=== PATIENT | male | born 2000 | race Caucasian/White ===

== ENCOUNTER 2020-01-14 16:57 | Emergency (ER) | payer BC, OTHER ==
--- NOTE | 2020-01-14 17:50 | EDM.PDOC ---
ED HPI GENERAL MEDICAL PROBLEM - General Chief Complaint: Upper Extremity Injury/Pain Stated Complaint: FINGER LACERATION Time Seen by Provider: 01/14/20 17:15 Source of Information: Reports: Patient History Limitations: Reports: No Limitations - History of Present Illness INITIAL COMMENTS - FREE TEXT/NARRATIVE: Patient come to ER to have left index finger laceration evaluated. 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 Got finger caught between two pieces of metal. Admits to getting woozy looking at the finger and briefly passed out. Did not hit head/denies injury from that. Tetanus updated 2012. No other injuries. Denies loss of function of finger/numbness. No active bleeding at this time. - Related Data Allergies Allergy/AdvReac Type Severity Reaction Status Date / Time No Known Allergies Allergy Verified 01/14/20 16:58 Home Meds: Home Meds Acetaminophen [Acetaminophen Extra Strength] 1,000 mg PO DAILY PRN 04/22/18 [History] Ibuprofen 200 mg PO Q6HR PRN 01/14/20 [History] Past Medical History - Past Surgical History HEENT Surgical History: Reports: Adenoidectomy, Tonsillectomy Review of Systems - Review of Systems Review Of Systems: Comprehensive ROS is negative, except as noted in HPI. ED EXAM, GENERAL - Physical Exam Exam: See Below Exam Limited By: No Limitations General Appearance: Alert, WD/WN, No Apparent Distress Eye Exam: Bilateral Eye: EOMI, PERRL Throat/Mouth: Normal Voice, No Airway Compromise Head: Atraumatic, Normocephalic Extremities: Other (Exam of hands shows 2cm superficial laceration involving d istal portion of left index finger that is more like an incomplete skin avulsion. No active bleeding. No deformity. Nail uninvolved. Able to flex/exend all fingers. Neuro/vasc intact. ) Neurological: Alert, Oriented, Normal Cognition, Normal Gait, No Motor/Sensory Deficits Psychiatric: Normal Affect, Normal Mood Skin Exam: Warm, Normal Color ED TRAUMA EXTREMITY PROCEDURES - Additional/Other Procedure(s) Other (Free Text) Procedure(s): 2cm curved superficial skin partial avulsion on 2nd finger left hand soaked in Betadine. Skin pushed back into place and treated with Dermabond with good result. Steri strips applied over this. Wound dressed by nursing staff. Course - Vital Signs Last Recorded V/S: Last Vital Signs Temp 36.2 C 01/14/20 17:00 Pulse 84 01/14/20 17:00 Resp 16 01/14/20 17:00 BP 127/70 01/14/20 17:00 Pulse Ox 99 01/14/20 17:00 - Orders/Labs/Meds Orders: Active Orders 24 hr Category Date Time Status Fingers Second Digit Lt F1 [CR] Stat Exams 01/14/20 17:03 Taken - Re-Assessments/Exams Free Text/Narrative Re-Assessment/Exam: 01/14/20 18:12 Laceration repaired. Wound care and precautions reviewed. To follow up as needed if any problems develop such as signs of infection. Departure - Departure Time of Disposition: 17:49 Disposition: Home, Self-Care 01 Condition: Good Clinical Impression: Laceration of left index finger Qualifiers: Encounter type: initial encounter Damage to nail status: without damage Foreign body presence: without foreign body Qualified Code(s): S61.211A - Laceration without foreign body of left index finger without damage to nail, initial encounter - Discharge Information *PRESCRIPTION DRUG MONITORING PROGRAM REVIEWED*: Not Applicable *COPY OF PRESCRIPTION DRUG MONITORING REPORT IN PATIENT JUSTUS: Not Applicable Instructions: Sutures, [place], or Adhesive Wound Closure, [id number] Referrals: Adair Lopes PA [Primary Care Provider] - Forms: ED Department Discharge Additional Instructions: Keep wound clean/dry while it heals as we discussed. Get rechecked if you see any signs of infection (increased pain/redness/drainage)! Sepsis Event Note (ED) - Evaluation Sepsis Screening Result: No Definite Risk - Focused Exam Vital Signs: Vital Signs Temp Pulse Resp BP Pulse Ox 01/14/20 17:00 36.2 C 84 16 127/70 99 - My Orders Last 24 Hours: My Active Orders 01/14/20 17:03 Fingers Second Digit Lt F1 [CR] Stat - Assessment/Plan Last 24 Hours: My Active Orders 01/14/20 17:03 Fingers Second Digit Lt F1 [CR] Stat
== END 2020-01-14 17:59 | disposition home or self-care (01) ==
LOC: LL.ED 16:57
DX: S61.211A Laceration without foreign body of left index finger without damage to nail, initial encounter (principal); W23.0XXA Caught, crushed, jammed, or pinched between moving objects, initial encounter
CPT/HCPCS: 12001; 73140-F1; 99282; 99283-25